=== PATIENT | female | born 1990 | race Caucasian/White ===

== ENCOUNTER 2016-10-18 00:29 | Emergency (ER) ==
[2016-10-18 00:29] VITALS: BMI 32.9
[2016-10-18 00:41] VITALS: BP 109/65; TEMP 97.7
[2016-10-18] MEDS ORDERED: TETRACAINE 0.5% UNIT-DOSE OP STA (00:59)
[2016-10-18] MEDS ORDERED: EYE-STREAM OP STA (00:59)
[2016-10-18] MEDS ORDERED: FLUORETS OP STA (00:59)
--- NOTE | 2016-10-18 01:03 | ED.PDOC ---
General ED Provider: Dr. LIN CHILDS Chief Complaint: Eye Problem Stated Complaint: has Had right eye irriation for two days. Tired over the counter medications eye drops with helps with redness but is still irritated. Denies any trauma or foreign object in it. Denies being around grinding metal or wood. Vision is still intact. Time Seen by Physician: 00:59 Mode of Arrival: Walk-In Information Source: Patient Exam Limitations: No limitations Nursing and Triage Documentation Reviewed and Agree: Yes EENT Complaint Exam - Eye Complaint/Exam Onset/Duration: 2 days Symptoms Are: Still present Timing: Constant Initial Severity: Mild Current Severity: Moderate Location: Right Character: Reports: Dull Aggravating: Reports: Light Alleviating: Reports: None Associated Signs and Symptoms: Denies: Photophobia, Clear drainage, Purulent drainage, Vision impairment, Fever, Swelling Related History: Reports: Environmental. Denies: Similar episode, Trauma Eye Surgical History: Reports: None Penetrating Injury Risk Factors: None Globe Rupture Risk Factors: None Acute Glaucoma Risk Factors: None Optic Artery Occlusion Risk Factors: None Visual Field: Normal Extraocular Movement: Normal Orbit Findings: Normal Globe Findings: Intact Lid Findings: Normal Conjunctival Findings: Red (very mild from rubbing. ) Corneal Findings: Clear Fluorescein Uptake: No Fundi: Normal Slit Lamp Used: No Differential Diagnoses: Conjunctivitis Review of Systems - Review Of Systems Constitutional: Reports: No symptoms Eyes: Reports: Pain Ears, Nose, Mouth, Throat: Reports: No symptoms Respiratory: Reports: No symptoms Cardiac: Reports: No symptoms GI: Reports: No symptoms : Reports: No symptoms Musculoskeletal: Reports: No symptoms Skin: Reports: No symptoms Neurological: Reports: No symptoms Endocrine: Reports: No symptoms Hematologic/Lymphatic: Reports: No symptoms All Other Systems: Reviewed and Negative Past Medical History - Past Medical History Previously Healthy: Yes Endocrine: Reports: None Cardiovascular: Reports: None Respiratory: Reports: None Hematological: Reports: None Gastrointestinal: Reports: None Genitourinary: Reports: None Neuro/Psych: Reports: None Musculoskeletal: Reports: None Cancer: Reports: None Last Menstrual Period: 1 week ago - Surgical History General Surgical History: Reports: Tubal ligation - Family History Family History: Reports: Unknown - Social History Smoking Status: Never smoker Hx Substance Use: No Alcohol Screening: None - Immunizations Tetanus Shot up to Date: Yes Physical Exam - Physical Exam Appearance: Well-appearing, No pain distress, Well-nourished Eyes: DANIAL, EOMI, Conjunctiva inflammed (on the right) ENT: Ears normal, Nose normal, Oropharynx normal Neck: Supple Respiratory: Airway patent, Breath sounds clear, Breath sounds equal, Respirations nonlabored Cardiovascular: RRR, Pulses normal, No rub, No murmur GI/: Soft, Nontender, No masses, Bowel sounds normal, No Organomegaly Musculoskeletal: Normal strength, ROM intact, No edema, No calf tenderness Skin: Warm, Dry, Normal color Neurological: Sensation intact, Motor intact, Reflexes intact, Cranial nerves intact, Alert, Oriented Psychiatric: Affect appropriate, Mood appropriate Critical Care Note - Critical Care Note Total Time (mins): 0 Course - Course Orders, Labs, Meds: Orders Category Date Time Status Balanced Salt Solution [Eye-Stream] MEDS 10/18/16 00:59 Stat 1 bottle OP ONCE STA Fluorescein Sodium [Fluorets] MEDS 10/18/16 00:59 Stat 1 strip OP ONCE STA Tetracaine HCl/Pf [Tetracaine 0.5% Unit-Dose] MEDS 10/18/16 00:59 Stat 2 drop OP ONCE STA Vital Signs: Temp Pulse Resp BP Pulse Ox 10/18/16 00:33 97.7 F 78 18 109/65 98 Departure - Departure Time of Disposition: 01:13 Disposition: HOME SELF-CARE Discharge Problem: Allergic conjunctivitis of right eye Instructions: Conjunctivitis (ED) Condition: Good Pt referred to PMD for follow-up: Yes Additional Instructions: Stop using the Mascara use eye stream to the right eye as needed for irritation Follow up with PCP in 2 days. Allergies/Adverse Reactions: Allergies No Known Allergies Allergy (Verified 10/18/16 00:41) Home Medications: Ambulatory Orders Biotin 1 mg PO DAILY 01/06/15 Cyanocobalamin (Vitamin B-12) [Vitamin B-12] 1,000 mcg PO DAILY 01/06/15 Vitamin B-6 [Pyridoxine HCl] 50 mg PO DAILY 01/06/15 Ibuprofen 800 mg PO BID PRN 11/03/15
== END 2016-10-18 01:30 | disposition home or self-care (01) ==
LOC: ED 00:29
DX: H10.11 Acute atopic conjunctivitis, right eye (principal)
CPT/HCPCS: 99282